=== PATIENT | male | born 1955 | race Caucasian/White ===

== ENCOUNTER 2020-07-05 12:08 | Outpatient (CLI) | payer MEDICARE, MEDICAID | END 2020-07-05 12:09 | disposition home or self-care (01) | LOC: CSHCT 12:08 | PROVIDERS: ATTEND Neurological Surgery | DX: S06.6X0D Traumatic subarachnoid hemorrhage without loss of consciousness, subsequent encounter (principal); I62.01 Nontraumatic acute subdural hemorrhage | CPT/HCPCS: 70450 ==

== ENCOUNTER 2021-06-01 07:55 | Outpatient (CLI) | payer MEDICARE, MEDICAID | END 2021-06-01 07:56 | disposition home or self-care (01) | LOC: CSHMRI 07:55 | PROVIDERS: ATTEND Neurological Surgery | DX: M48.062 Spinal stenosis, lumbar region with neurogenic claudication (principal); M50.00 Cervical disc disorder with myelopathy, unspecified cervical region; M47.816 Spondylosis without myelopathy or radiculopathy, lumbar region; S32.020A Wedge compression fracture of second lumbar vertebra, initial encounter for closed fracture; M47.812 Spondylosis without myelopathy or radiculopathy, cervical region | CPT/HCPCS: 72052; 72120; 72156; 72158; 82565 ==